=== PATIENT | male | born 1965 | race Caucasian/White ===

== ENCOUNTER 2020-08-05 17:13 | Emergency (ER) | payer OTHER ==
[~2020-08-05] VITALS: Ht 177.8 cm; Wt 104.3 kg
[~2020-08-05 17:13] MED LIST: ATIVAN1 MG PO; DUPIXENT300 MG/2 M SQ; METHOTREXATE2.5 MG PO; ONDANSETRON ODT8 MG PO; VERAPAMIL ER P100 MG PO
[2020-08-05] MEDS ORDERED: ULORIC40 MG PO (17:33)
[2020-08-05] MEDS ORDERED: KEFLEX500 MG PO (18:36)
== END 2020-08-05 18:52 | disposition home or self-care (01) ==
LOC: ED 17:13
DX: S01.511A Laceration without foreign body of lip, initial encounter (principal); G43.909 Migraine, unspecified, not intractable, without status migrainosus; Z79.899 Other long term (current) drug therapy; W22.8XXA Striking against or struck by other objects, initial encounter
CPT/HCPCS: 40650; 90471; 90715; 99282-25; J1885